=== PATIENT | male | born 1980 | race Caucasian/White ===

== ENCOUNTER 2019-05-04 05:37 | Emergency (ER) | payer OTHER ==
[2019-05-04] MEDS ORDERED: LORazepam 2 MG/ML VIAL IVP ONE (05:45)
[2019-05-04] MEDS ORDERED: KETOROLAC 30 MG/ML VIAL IVP ONE (05:45)
--- NOTE | 2019-05-04 05:45 | ER Report ---
History and Physical Time Seen By MD: 05:38 HPI/ROS CHIEF COMPLAINT: Severe neck and back pain HISTORY OF PRESENT ILLNESS: 38-year-old male brought in by EMS from [facility] where he was staying. Patient states that he drove from [place] to here last night. He states a month ago he had 100 pound tire fall on his right shoulder and neck. He was seen at a hospital and had a CAT scan. He also states he has some x-rays performed as well. He states the pain began to get worse 20 miles out. He describes 10/10 pain in his upper back and neck radiating to his right arm. She denies shortness of breath, diaphoresis or cardiac history. Patient denies nausea or vomiting. EMS administered fentanyl 50 g IV without improvement of his pain. Patient is lying in the bed, moaning in severe pain. He appears to have carpopedal spasm in his upper extremities. Patient states he saw a chiropractor. He states the pain is progressively worse this morning. REVIEW OF SYSTEMS: Respiratory: No cough, no dyspnea. Cardiovascular: No chest pain, no palpitations. Gastrointestinal: No vomiting, no abdominal pain. Musculoskeletal: As above Allergies: Coded Allergies: No Known Drug Allergies (Unverified , 05/04/19) Home Meds Active Scripts Tramadol Hcl (TRAMADOL HCL) 50 Mg Tablet, 1 MG PO Q4-6H for PAIN, #15 MG TAKE ONE TABLET BY MOUTH EVERY FOUR TO SIX HOURS NEEDED Prov:DEANNARUBEN DO 05/04/19 Methocarbamol (ROBAXIN-750) 750 Mg Tablet, 1-2 TAB PO TID PRN for muscle spasm relief, #20 Prov:RUBEN HUERTA DO 05/04/19 Reviewed Nurses Notes: Yes Old Medical Records Reviewed: Yes Constitutional Vital Sign - Last 24 Hours 05/04/19 05/04/19 05/04/19 05/04/19 05:41 05:43 05:50 06:00 Temp 97.7 Pulse 75 Resp 17 B/P (MAP) 123/86 123/86 (98) 108/79 (89) Pulse Ox 98 O2 Delivery Room Air O2 Flow Rate 2.0 05/04/19 05/04/19 05/04/19 05/04/19 06:07 06:32 07:00 07:30 Pulse 57 68 Resp 14 18 B/P (MAP) 122/97 (105) 122/84 (97) 119/90 (100) Pulse Ox 94 98 05/04/19 08:00 Pulse 61 Resp 12 B/P (MAP) 136/100 (112) Intake and Output 05/03/19 05/03/19 05/04/19 15:00 23:00 07:00 Intake Total 1000 ml Balance 1000 ml Physical Exam Vital signs stable, afebrile, pulse ox normal General Appearance: The patient is alert, has no immediate need for airway protection and no current signs of toxicity. Moderate distress, skin warm, dry, pink Eyes: Pupils equal and round no injection. Respiratory: Chest is non tender, lungs are clear to auscultation. No chest wall tenderness Cardiac: regular rate and rhythm Gastrointestinal: Abdomen is soft and non tender, no masses, bowel sounds normal. No CVA tenderness Musculoskeletal: Neck: Neck is supple and non tender. There is tenderness on palpation of the right upper thoracic region. There is muscle spasm noted there. Extremities have full range of motion and are non tender. Skin: No rashes or lesions. DIFFERENTIAL DIAGNOSIS: After history and physical exam differential diagnosis was considered for back pain including but not limited to muscular pain, herniated disc, spine fracture, intra-abdominal causes and urinary tract infection. Additionallychest pain including but not limited to myocardial ischemia, pericarditis pulmonary embolus, chest wall pain, pleural inflammation and pulmonary infectious causes. Medical Decision Making Data Points Result Diagram: 05/04/19 0530 05/04/19 0530 Laboratory Hematology Test 05/04/19 05:30 Red Blood Count 5.32 M/uL (4.00-5.60) Mean Corpuscular Volume 86.4 fL (80.0-96.0) Mean Corpuscular Hemoglobin 30.6 pg (26.0-33.0) Mean Corpuscular Hemoglobin Concent 35.4 g/dL (32.0-36.0) Red Cell Distribution Width 12.7 % (11.5-14.5) Mean Platelet Volume 9.1 fL (7.2-11.1) Neutrophils (%) (Auto) 65.5 % (39.4-72.5) Lymphocytes (%) (Auto) 25.3 % (17.6-49.6) Monocytes (%) (Auto) 6.7 % (4.1-12.4) Eosinophils (%) (Auto) 1.7 % (0.4-6.7) Basophils (%) (Auto) 0.8 % (0.3-1.4) Nucleated RBC Relative Count (auto) 0.1 /100WBC Neutrophils # (Auto) 3.9 K/uL (2.0-7.4) Lymphocytes # (Auto) 1.5 K/uL (1.3-3.6) Monocytes # (Auto) 0.4 K/uL (0.3-1.0) Eosinophils # (Auto) 0.1 K/uL (0.0-0.5) Basophils # (Auto) 0.0 K/uL (0.0-0.1) Nucleated RBC Absolute Count (auto) 0.01 K/uL D-Dimer Quantitative (PE/DVT) 0.34 ug/ml (0-0.50) Sodium Level 141 mmol/L (137-145) Potassium Level 4.2 mmol/L (3.5-5.0) Chloride Level 105 mmol/L (98-107) Carbon Dioxide Level 26 mmol/L (22-30) Blood Urea Nitrogen 14 mg/dl (9-21) Creatinine 1.00 mg/dl (0.66-1.25) Glomerular Filtration Rate Calc > 60.0 Random Glucose 135 mg/dl (75-110) Calcium Level 9.9 mg/dl (8.4-10.2) Total Bilirubin 1.3 mg/dl (0.2-1.3) Aspartate Amino Transf (AST/SGOT) 22 U/L (0-35) Alanine Aminotransferase (ALT/SGPT) 26 U/L (0-56) Alkaline Phosphatase 75 U/L (0-126) Troponin I < 0.012 ng/ml Total Protein 8.0 g/dl (6.3-8.2) Albumin 4.8 g/dl (3.5-5.0) Chemistry Test 05/04/19 05:30 White Blood Count 6.0 k/uL (4.5-11.0) Red Blood Count 5.32 M/uL (4.00-5.60) Hemoglobin 16.3 g/dL (14.0-18.0) Hematocrit 46.0 % (42.0-52.0) Mean Corpuscular Volume 86.4 fL (80.0-96.0) Mean Corpuscular Hemoglobin 30.6 pg (26.0-33.0) Mean Corpuscular Hemoglobin Concent 35.4 g/dL (32.0-36.0) Red Cell Distribution Width 12.7 % (11.5-14.5) Platelet Count 167 K/uL (150-450) Mean Platelet Volume 9.1 fL (7.2-11.1) Neutrophils (%) (Auto) 65.5 % (39.4-72.5) Lymphocytes (%) (Auto) 25.3 % (17.6-49.6) Monocytes (%) (Auto) 6.7 % (4.1-12.4) Eosinophils (%) (Auto) 1.7 % (0.4-6.7) Basophils (%) (Auto) 0.8 % (0.3-1.4) Nucleated RBC Relative Count (auto) 0.1 /100WBC Neutrophils # (Auto) 3.9 K/uL (2.0-7.4) Lymphocytes # (Auto) 1.5 K/uL (1.3-3.6) Monocytes # (Auto) 0.4 K/uL (0.3-1.0) Eosinophils # (Auto) 0.1 K/uL (0.0-0.5) Basophils # (Auto) 0.0 K/uL (0.0-0.1) Nucleated RBC Absolute Count (auto) 0.01 K/uL D-Dimer Quantitative (PE/DVT) 0.34 ug/ml (0-0.50) Glomerular Filtration Rate Calc > 60.0 Calcium Level 9.9 mg/dl (8.4-10.2) Total Bilirubin 1.3 mg/dl (0.2-1.3) Aspartate Amino Transf (AST/SGOT) 22 U/L (0-35) Alanine Aminotransferase (ALT/SGPT) 26 U/L (0-56) Alkaline Phosphatase 75 U/L (0-126) Troponin I < 0.012 ng/ml Total Protein 8.0 g/dl (6.3-8.2) Albumin 4.8 g/dl (3.5-5.0) Coagulation Test 05/04/19 05:30 D-Dimer Quantitative (PE/DVT) 0.34 ug/ml EKG/Imaging EKG Interpretation 12 lead EK Rhythm: normal sinus rhythm [place]: normal QRS: normal ST segments: normal, no evidence of ischemia or dysrhythmia Imaging X-ray: Single view portable chest x-ray was obtained. I viewed the images myself on the PACS system. My interpretation of the images is: No infiltrate, no effusion, normal mediastinum. The radiologist interpretation had no clinically significant variation from this interpretation. ED Course/Re-evaluation Clinical Indication for ER IV: IV Access ED Course Patient was minute to an examination room. H&P was done. The differential diagnoses was considered. Patient with severe 10 out of 10 mid scapular pain on the right side. Patient sustained an injury 1 month ago where a might tire fell on his right shoulder and neck. He was seen in the ER had diagnostic studies including a CT, which were unremarkable. Patient's been following up with a iropractor. This morning he developed severe pain and spasm in the affected area. Patient was medicated by EMS with 50 of fentanyl without improvement of his symptoms. He presents to the ER in agonizing discomfort. Hyperventilating. An EKG was unremarkable. Patient was medicated with Ativan 2 mg IV and Toradol 30 motor grams IV. Chest x-ray, d-dimer, troponin were all unremarkable. Patient's symptoms came under control with medication as noted above. Patient discharged home on Robaxin and tramadol. He is advised to follow-up with his primary care doctor upon returning to [place]. Decision to Disposition Date: May 04, 2019 Decision to Disposition Time: 07:43 Depart Departure Latest Vital Signs Vital Signs Date Time Temp Pulse Resp B/P (MAP) Pulse Ox O2 Delivery O2 Flow Rate FiO2 05/04/19 08:00 61 12 136/100 (112) 05/04/19 07:30 98 05/04/19 05:50 2.0 05/04/19 05:41 97.7 Room Air Impression: Primary Impression: Thoracic region somatic dysfunction Condition: Improved Disposition: HOME OR SELF-CARE New Scripts Tramadol Hcl (TRAMADOL HCL) 50 Mg Tablet 1 MG PO Q4-6H for PAIN, #15 MG TAKE ONE TABLET BY MOUTH EVERY FOUR TO SIX HOURS NEEDED Prov: RUBEN HUERTA DO 05/04/19 Methocarbamol (ROBAXIN-750) 750 Mg Tablet 1-2 TAB PO TID PRN for muscle spasm relief, #20 Prov: RUBEN HUERTA DO 05/04/19 Patient Instructions: Thoracic Back Strain (ED) Additional Instructions: Take ibuprofen 200 mg 3 tablets 3 times a day with food Apply heating pad to your back Follow-up with your primary care doctor RUBEN HUERTA DO May 04, 2019 05:45
[2019-05-04 05:56] LABS: PLATELET COUNT, AUTOMATED 167 K/uL (150-450)
--- NOTE | 2019-05-04 06:02 | EKG ---
FACILITY: [facility] PATIENT NAME: RADHA GA : [id number] MR: [id number] V: [id number] EXAM DATE: ORDERING PHYSICIAN: RUBEN HUERTA TECHNOLOGIST: MALI Test Reason : BACK PAIN Blood Pressure : / mmHG Vent. Rate : 064 BPM Atrial Rate : 064 BPM P-R Int : 130 ms QRS Dur : 094 ms QT Int : 412 ms P-R-T Axes : 040 017 029 degrees QTc Int : 425 ms Sinus rhythm Borderline left axis Nonspecific interventricular conduction delay No previous ECGs available Confirmed by BRYSON LIZARRAGA ([id number] on 05/04/2019 6:35:39 AM Referred By: Confirmed By:BRYSON LIZARRAGA
[2019-05-04] MEDS ORDERED: EMS NS 0.9%(*) 1000 ML BAG 1,000 ML IV ONE (06:15)
--- NOTE | 2019-05-04 06:45 | RADIOLOGY IMAGING REPORT ---
FACILITY: [facility] PATIENT NAME: Sheldon Conley : 1980 MR: [id number] V: [id number] EXAM DATE: ORDERING PHYSICIAN: RUBEN HUERTA TECHNOLOGIST: Location: [facility] Patient: Sheldon Conley : 1980 Visit/Account:[id number] Date of Sevice: 05/04/2019 CHEST PA LAT HISTORY: Chest pain COMPARISON: None FINDINGS: Cardiomediastinal contours: Normal Lungs and pleura: Normal Bones/soft tissues: Normal Other findings: None significant IMPRESSION: 1. Normal chest Report Dictated By: Crow Mario MD at 05/04/2019 6:40 AM Report E-Signed By: Crow Mario MD at 05/04/2019 6:41 AM WSN:[id number]
[2019-05-04] MEDS ORDERED: METH-543 PO (06:47)
[2019-05-04] MEDS ORDERED: TRAM-420 PO (06:47)
[2019-05-04 08:00] VITALS: BP 136/100
== END 2019-05-04 08:30 | disposition home or self-care (01) ==
LOC: ER 05:44
DX: M99.02 Segmental and somatic dysfunction of thoracic region (principal)
CPT/HCPCS: 71046; 84484; 85025; 85379; 93005; 96361; 96374; 96375; 99284; J1885; J2060; 82040; 82247; 82310; 82374; 82435; 82565; 82947; 84075; 84132; 84155; 84295; 84450; 84460; 84520

== ENCOUNTER → 2019-05-04 | Outpatient (CLI) | payer OTHER ==
[~2019-05-04] MED LIST: METH-543 PO; TRAM-420 PO
== END ==
LOC: AMB 05:22
PROVIDERS: ATTEND Nurse Practitioner
DX: M25.511 Pain in right shoulder (principal)
CPT/HCPCS: A0425; A0427